=== PATIENT | male | born 1960 | race Two or more races ===

== ENCOUNTER 2016-10-11 05:22 | Emergency (ER) | payer OTHER ==
[~2016-10-11] VITALS: Ht 182.9 cm; Wt 70.4 kg
[~2016-10-11 05:22] MED LIST: ADVAIR 100/501 DISK IH; ALBUTEROL SULF8.5 GM IH; FLEXERIL10 MG PO; NAPROSYN-EC500 MG PO; PERCOCET 5/31 TABLET PO; PREDNISONE20 MG PO; PRILOSEC20 MG PO; PROVENTIL HFA6.7 GM; SINGULAIR10 MG PO; SYMBICORT60 INHALAT IH; WELLBUTRIN SR150 MG PO; ZITHROMAX Z-PA250 MG PO
[2016-10-11 06:22] LABS: EOSINOPHIL (%) 6.9 % (0-5); EOSINOPHIL COUNT 0.4 K/uL (0-0.3); HEMATOCRIT 44.1 % (38.0-50.0); IMMATURE GRANULOCYTE (%) 0.4 % (0.0-0.7); INSTRUMENT ABS NEUTROPHIL CT 1.8 K/uL; LYMPHOCYTE COUNT 2.8 K/uL (1.0-2.8); MCH 31.9 PG (29.0-34.0); MCHC 35.4 G/DL (30.0-36.0); MCV 90.2 FL (86-99); MEAN PLAT.VOLUME 8.8 uM^3 (9.0-12.4); MONOCYTE COUNT 0.6 K/uL (0-0.8); NEUTROPHIL (%) 31.9 % (45-76); NEUTROPHIL COUNT 1.8 K/uL (1.8-6.4); PLATELET COUNT 183 K/uL (156-360); RBC DIS.WIDTH-CV 12.5 % (11.8-14.6); RBC DIS.WIDTH-SD 41.1 % (39-53); RED BLOOD COUNT 4.89 M/uL (4.00-5.50); WHITE BLOOD COUNT 5.5 K/uL (4.1-10.2)
[2016-10-11 06:32] LABS: CHLORIDE 106 mEq/L (99-109); POTASSIUM 3.8 mEq/L (3.7-5.4); SODIUM 141 mEq/L (136-147)
[2016-10-11 06:34] LABS: GLUCOSE 92 mg/dL (70-99)
[2016-10-11 06:35] LABS: ANION GAP 13 MEQ/L (2-14)
[2016-10-11 06:37] LABS: SERUM ETHYL ALCOHOL 307 mg/dL
[2016-10-11 06:38] LABS: GFR ESTIMATE (CALCULATED) > 59 mL/min/
[2016-10-11 06:39] LABS: UREA NITROGEN (BUN) 9 mg/dL (9-23)
[2016-10-11] MEDS ORDERED: ADDERALL10 MG PO (08:31)
[2016-10-11 15:03] VITALS: BP 131/84
== END 2016-10-11 15:11 | disposition home or self-care (01) ==
LOC: EME 05:22
PROVIDERS: Emergency Medicine
DX: R45.851 Suicidal ideations (principal); F10.129 Alcohol abuse with intoxication, unspecified; Y90.8 Blood alcohol level of 240 mg/100 ml or more; F32.9 Major depressive disorder, single episode, unspecified; F12.10 Cannabis abuse, uncomplicated; F14.10 Cocaine abuse, uncomplicated; J44.9 Chronic obstructive pulmonary disease, unspecified; F17.200 Nicotine dependence, unspecified, uncomplicated; Z88.5 Allergy status to narcotic agent
CPT/HCPCS: 80048; 85025; 90837; 94640; 99281; 99285; G0480; J1100

== ENCOUNTER 2016-11-12 22:50 | Emergency (ER) | payer OTHER ==
[~2016-11-12] VITALS: Ht 182.9 cm; Wt 72.8 kg
[~2016-11-12 22:50] MED LIST changes: +ADDERALL10 MG PO
[2016-11-12] MEDS ORDERED: ADDERALL XR 2020 MG PO (23:31)
[2016-11-13] MEDS ORDERED: PERCOCET 5/31 TABLET PO (00:11)
[2016-11-13] MEDS ORDERED: CLEOCIN300 MG PO (00:11)
[2016-11-13 01:14] VITALS: BP 146/88
[2016-11-13] MEDS ORDERED: VIBRAMYCIN100 MG PO (20:04)
== END 2016-11-13 01:15 | disposition home or self-care (01) ==
LOC: EME 22:50
PROC: 0H9EXZZ Drainage of Left Lower Arm Skin, External Approach (ICD-10-PCS; principal; 2016-11-12)
DX: L02.414 Cutaneous abscess of left upper limb (principal); J44.9 Chronic obstructive pulmonary disease, unspecified; F32.9 Major depressive disorder, single episode, unspecified; F17.200 Nicotine dependence, unspecified, uncomplicated; F10.10 Alcohol abuse, uncomplicated; F19.10 Other psychoactive substance abuse, uncomplicated
CPT/HCPCS: 87070; 87075; 87205; 99281; 99284

== ENCOUNTER 2016-11-13 18:02 | Emergency (ER) | payer OTHER ==
[~2016-11-13] VITALS: Ht 182.9 cm; Wt 73.3 kg
[~2016-11-13 18:02] MED LIST changes: +ADDERALL XR 2020 MG PO; +CLEOCIN300 MG PO
[2016-11-13] MEDS ORDERED: VIBRAMYCIN100 MG PO (20:04)
[2016-11-13 20:19] VITALS: BP 154/79
== END 2016-11-13 20:20 | disposition home or self-care (01) ==
LOC: EME 18:02
DX: Z48.817 Encounter for surgical aftercare following surgery on the skin and subcutaneous tissue (principal); L02.414 Cutaneous abscess of left upper limb; S50.862D Insect bite (nonvenomous) of left forearm, subsequent encounter; W57.XXXD Bitten or stung by nonvenomous insect and other nonvenomous arthropods, subsequent encounter; F17.200 Nicotine dependence, unspecified, uncomplicated
CPT/HCPCS: 99281; 99283

== ENCOUNTER 2016-11-18 03:14 | Emergency (ER) | payer OTHER ==
[~2016-11-18] VITALS: Ht 182.9 cm; Wt 71.8 kg
[~2016-11-18 03:14] MED LIST changes: +VIBRAMYCIN100 MG PO
[2016-11-18 03:44] LABS: HEMATOCRIT 41.5 % (38.0-50.0); MCH 32.7 PG (29.0-34.0); MCHC 36.4 G/DL (30.0-36.0); MCV 89.8 FL (86-99); MEAN PLAT.VOLUME 8.4 uM^3 (9.0-12.4); PLATELET COUNT 225 K/uL (156-360); RBC DIS.WIDTH-CV 12.6 % (11.8-14.6); RBC DIS.WIDTH-SD 41.3 % (39-53); RED BLOOD COUNT 4.62 M/uL (4.00-5.50); WHITE BLOOD COUNT 5.3 K/uL (4.1-10.2)
[2016-11-18 03:53] LABS: CHLORIDE 107 mEq/L (99-109); POTASSIUM 3.5 mEq/L (3.7-5.4); SODIUM 140 mEq/L (136-147)
[2016-11-18 03:55] LABS: GLUCOSE 121 mg/dL (70-99)
[2016-11-18 03:57] LABS: ANION GAP 12 MEQ/L (2-14); TOTAL BILIRUBIN 0.3 mg/dL (0.0-1.0)
[2016-11-18 03:59] LABS: ALKALINE PHOSPHATASE 292 IU/L (3-129); GFR ESTIMATE (CALCULATED) > 59 mL/min/
[2016-11-18 04:00] LABS: UREA NITROGEN (BUN) 9 mg/dL (9-23)
[2016-11-18 04:48] LABS: ERTH.SED.RATE 13 MM/HR (0-20)
[2016-11-18] MEDS ORDERED: FLONASE16 G1 BOTH NARES (04:48)
[2016-11-18] MEDS ORDERED: FIORICET,ESG1 TABLET PO (04:48)
[2016-11-18] MEDS ORDERED: MUCINEX D ER T1 EAC1 PO (04:48)
[2016-11-18 05:20] VITALS: BP 157/100
== END 2016-11-18 05:25 | disposition home or self-care (01) ==
LOC: EME → EDBD 03:14 → EME 03:14
PROVIDERS: Physician Assistant
DX: R51 Headache (principal); J32.9 Chronic sinusitis, unspecified; R79.89 Other specified abnormal findings of blood chemistry; L02.414 Cutaneous abscess of left upper limb; F17.200 Nicotine dependence, unspecified, uncomplicated
CPT/HCPCS: 70450; 80053; 85027; 85651; 86140; 99281; 99285; J1200; J1885; J2765; J7030

== ENCOUNTER 2017-04-04 14:55 | Emergency (ER) | payer OTHER ==
[~2017-04-04] VITALS: Ht 182.9 cm; Wt 71.6 kg
[~2017-04-04 14:55] MED LIST changes: +FIORICET,ESG1 TABLET PO; +FLONASE16 G1 BOTH NARES; +MUCINEX D ER T1 EAC1 PO
[2017-04-04 16:51] LABS: ANION GAP 12 MEQ/L (2-14); CHLORIDE 96 MEQ/L (99-109); POTASSIUM 3.8 MEQ/L (3.7-5.4); SAMPLE HEMOLYSIS CHECK 2; SAMPLE ICTERIC CHECK 0; SAMPLE LIPEMIA CHECK 1; SODIUM 129 MEQ/L (136-147); TOTAL BILIRUBIN 1.6 MG/DL (0.0-1.0)
[2017-04-04 17:04] LABS: ALKALINE PHOSPHATASE 281 IU/L (3-129); GFR ESTIMATE (CALCULATED) > 59 mL/min/; GLUCOSE 166 mg/dL (70-99); LIPASE 486 U/L (1.0-51.0); SERUM ETHYL ALCOHOL < 10 mg/dL; UREA NITROGEN (BUN) 14 mg/dL (9-23)
[2017-04-04 17:19] LABS: HEMATOCRIT 35.4 % (38.0-50.0); MCV 95.2 FL (86-99); PATIENT HCT 35.4; PLATELET COUNT 167 K/uL (156-360); RBC DIS.WIDTH-CV 13.6 % (11.8-14.6); RBC DIS.WIDTH-SD 47.5 % (39-53); RED BLOOD COUNT 3.72 M/uL (4.00-5.50); WHITE BLOOD COUNT 8.9 K/uL (4.1-10.2)
[2017-04-04 17:35] LABS: ADD MIUA? NO; BILIRUBIN NEGATIVE; BLOOD NEGATIVE; COLOR AMBER ((YELLOW)); GLUCOSE (STRIP) NEGATIVE; KETONES NEGATIVE; LEUKOCYTES NEGATIVE; NITRITE NEGATIVE; PROTEIN (STRIP) 30; SPECIFIC GRAVITY 1.023 (1.000-1.030); UCUL ADDED? NO; UROBILINOGEN 0.2 MG/DL (0.2-1.0)
[2017-04-04 17:35] LABS: MCH 33.7 PG (29.0-34.0); PATIENT HGB 12.5
[2017-04-04 17:36] LABS: MCHC 35.4 G/DL (30.0-36.0)
[2017-04-04 17:49] LABS: HEMATOLOGY COMMENT 1 SPECIMEN LIPEMIC - I
[2017-04-04] MEDS ORDERED: FLONASE16 G1 BOTH NARES (18:27)
[2017-04-04] MEDS ORDERED: ALKA-SELTZER O1 EACH PO (18:28)
[2017-04-04] MEDS ORDERED: MILK THISTLE140 M1 PO (18:28)
[2017-04-04] MEDS ORDERED: PROAIR HFA8.5 GM IH (18:29)
[2017-04-04 20:56] VITALS: BP 147/88
== END 2017-04-04 20:57 | disposition left against medical advice (07) ==
LOC: EME 14:55
DX: K85.20 Alcohol induced acute pancreatitis without necrosis or infection (principal); F10.20 Alcohol dependence, uncomplicated; E87.1 Hypo-osmolality and hyponatremia; J44.9 Chronic obstructive pulmonary disease, unspecified; Z80.0 Family history of malignant neoplasm of digestive organs; Z80.41 Family history of malignant neoplasm of ovary; F17.200 Nicotine dependence, unspecified, uncomplicated; Z53.29 Procedure and treatment not carried out because of patient's decision for other reasons
CPT/HCPCS: 71010; 74177; 80053; 81003; 83690; 85027; 99281; 99284; G0480; J2270; J2405; J7030

== ENCOUNTER 2017-04-12 08:31 | Emergency (ER) | payer OTHER ==
[~2017-04-12] VITALS: Ht 182.9 cm; Wt 70.7 kg
[~2017-04-12 08:31] MED LIST changes: +ALKA-SELTZER O1 EACH PO; +MILK THISTLE140 M1 PO; +PROAIR HFA8.5 GM IH
[2017-04-12 09:21] LABS: EOSINOPHIL COUNT 0.4 K/uL (0-0.3); HEMATOCRIT 36.7 % (38.0-50.0); IMMATURE GRANULOCYTE (%) 1.9 % (0.0-0.7); IMMATURE GRANULOCYTE COUNT 0.1 K/uL; INSTRUMENT ABS NEUTROPHIL CT 2.8 K/uL; LYMPHOCYTE COUNT 1.4 K/uL (1.0-2.8); MCH 33.8 PG (29.0-34.0); MCHC 34.3 G/DL (30.0-36.0); MCV 98.4 FL (86-99); MEAN PLAT.VOLUME 8.9 uM^3 (9.0-12.4); MONOCYTE (%) 10.5 % (3-12); MONOCYTE COUNT 0.6 K/uL (0-0.8); NEUTROPHIL (%) 53.1 % (45-76); NEUTROPHIL COUNT 2.8 K/uL (1.8-6.4); PLATELET COUNT 282 K/uL (156-360); RBC DIS.WIDTH-CV 13.4 % (11.8-14.6); RBC DIS.WIDTH-SD 48.4 % (39-53); RED BLOOD COUNT 3.73 M/uL (4.00-5.50); WHITE BLOOD COUNT 5.3 K/uL (4.1-10.2)
[2017-04-12 09:25] LABS: CHLORIDE 103 mEq/L (99-109); POTASSIUM 3.9 mEq/L (3.7-5.4); SODIUM 138 mEq/L (136-147)
[2017-04-12 09:27] LABS: GLUCOSE 107 mg/dL (70-99)
[2017-04-12 09:28] LABS: ANION GAP 9 MEQ/L (2-14)
[2017-04-12 09:31] LABS: GFR ESTIMATE (CALCULATED) > 59 mL/min/ (58.99-99999)
[2017-04-12 09:32] LABS: UREA NITROGEN (BUN) 10 mg/dL (9-23)
[2017-04-12] MEDS ORDERED: ZITHROMAX Z-PA250 MG PO (11:23)
[2017-04-12] MEDS ORDERED: PROVENTIL HFA6.7 GM IH (11:23)
[2017-04-12] MEDS ORDERED: PREDNISONE50 MG PO (11:23)
[2017-04-12 11:41] VITALS: BP 134/88
== END 2017-04-12 11:42 | disposition home or self-care (01) ==
LOC: EME 08:31
PROVIDERS: Emergency Medicine
DX: J45.901 Unspecified asthma with (acute) exacerbation (principal); J44.0 Chronic obstructive pulmonary disease with (acute) lower respiratory infection; J20.9 Acute bronchitis, unspecified; F32.9 Major depressive disorder, single episode, unspecified; F17.200 Nicotine dependence, unspecified, uncomplicated; Z88.5 Allergy status to narcotic agent; Z88.1 Allergy status to other antibiotic agents
CPT/HCPCS: 71010; 80048; 85025; 94640; 94640 76; 99281; 99284

== ENCOUNTER 2017-12-21 02:21 | Emergency (ER) | payer OTHER ==
[~2017-12-21] VITALS: Ht 182.9 cm; Wt 75.4 kg
[~2017-12-21 02:21] MED LIST changes: +PREDNISONE50 MG PO; +PROVENTIL HFA6.7 GM IH
[2017-12-21] MEDS ORDERED: MEDROL DOSEPAK4 MG PO (04:18)
[2017-12-21] MEDS ORDERED: PERCOCET 5/31 TABLET PO (04:18)
[2017-12-21] MEDS ORDERED: FLEXERIL10 MG PO (04:18)
[2017-12-21 04:38] VITALS: BP 150/87
== END 2017-12-21 04:38 | disposition home or self-care (01) ==
LOC: EME 02:21
DX: S46.912A Strain of unspecified muscle, fascia and tendon at shoulder and upper arm level, left arm, initial encounter (principal); X50.9XXA Other and unspecified overexertion or strenuous movements or postures, initial encounter; Y93.89 Activity, other specified
CPT/HCPCS: 73030; 99281; 99284; J3010; J7512